=== PATIENT | female | born 1990 | race African-American/Black ===

== ENCOUNTER 2020-03-24 02:36 | Inpatient (IN) | payer OTHER ==
--- OUTSIDE RECORDS SUMMARY | 2020-03-24 02:38 | XMS REPORT | Summary of Care ---
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 ULTRA) 29 mg iron- 1 mg-200 mg CapIndications: Supervision of high risk in second trimester documented as of this encounter (statuses as of 2020) Active Problems Problem Noted Date Trichomonal vulvovaginitis 08/10/2019 Overview: Pending yeni in 4 weeks Vaginal bleeding in 08/03/2019 Multiparity 08/03/2019 Supervision of high-risk 08/03/2019 Obesity affecting 05/15/2016 Estimated Date of Delivery Comments Yes 03/22/2020 Based on last menstr ual period of 06/16/2019 (Exact Date) documented as of this encounter (statuses as of 2020) Resolved Problems Problem Noted Date Resolved Date Well woman exam with routine gynecological exam 05/15/2016 08/03/2019 Contraception management 05/15/2016 08/03/2019 Need for Tdap vaccination 05/15/2016 08/03/2019 documented as of this encounter (statuses as of 2020) Immunizations Name Administration Dates Next Due HPV 05/15/2009 documented as of this encounter Social History Tobacco Use Types Packs/Day Years Used Date Never Smoker Smokeless Tobacco: Never Used Alcohol Use Drinks/Week oz/Week Comments Not Currently 0 Standard drinks or equivalent 0.0 social Alcohol Habits Answer Date Recorded How often do you have a drink containing alcohol? Never 08/03/2019 How many drinks containing alcohol do you have on a typical Not asked day when you are drinking? How often do you have six or more drinks on one occasion? No t asked Estimated Date of Delivery Comments Yes 03/22/2020 Based on last menstr ual period of 06/16/2019 (Exact Date) Sex Assigned at Date Recorded Not on file Job Start Date Occupation Industry Not on file Not on file Not on file Travel History Travel Start Travel End No recent travel history available. COVID-19 Exposure Response Date Recorded In the last month, have you been in contact with No / Unsure 2020 10:26 AM CDT someone who was confirmed or suspected to have Coronavirus / COVID-19? 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 documented in this encounter Discharge Instructions InstructionsDrever, Rosaura Martini NP - 2020Diagnosis: Pilonidal abscess Remove packing in 2 days Use heat therapy via heating pad or sitz baths 2-3 times per day Continue and complete Augmentin May take Tylenol for pain Follow up with your OB on Wednesday already scheduled Return to ED for onset of fever or acute worsening of symptoms documented in this encounter Plan of Treatment Name Type Priority Associated Diagnoses Date/Ti me Incision and Drainage PROCEDURES Routine Abscess of right 9:24 AM buttock CDT Health Maintenance Due Date Last Done Comments DTaP,Tdap,and Td Vaccines 08/03/2020 Postpo se from (1 - Tdap) 2002 ([place]) Depression Screening 08/03/2020 08/03/2019 INFLUENZA VACCINE (#1) 2020 Postponed from 04/23/2020 (Refu sed) PAP SMEAR 08/03/2022 08/03/2019, 08/03/2019, 07/01/2009, Additional history exists PNEUMOCOCCAL 0-64 YEARS Aged Out No longe r eligible COMBINED SERIES based on patient 's age to complete this topic documented as of this encounter Procedures Procedure Name Priority Date/Time Associated Diagnosis Comme nts INCISION AND DRAINAGE Routine 2020 9:24 AM Abscess of r ight CDT buttock NOTICE OF PRIVACY Routine 2020 9:23 AM PRACTICES CDT documented in this encounter Results Not on filedocumented in this encounter Visit Diagnoses Diagnosis Third trimester - Primary Cellulitis of buttock Cellulitis and abscess of buttock Abscess of right buttock Cellulitis and abscess of buttock documented in this encounter Administered Medications Medication Order MAR Action Action Date Dose Rate Site acetaminophen (TYLENOL) tablet Given 2020 12:20 PM CDT 650 mg 650 mg 650 mg, Oral, ONCE, 1 dose, 03/16/20 at 1315, LEESA lidocaine-prilocaine (EMLA) 2.5-2.5 % Given 2020 10:36 AM CDT 5 g See Comment cream 5 g Topical, ONCE, 1 dose, 03/16/20 at 1145, LEESA documented in this encounter Insurance Payer Benefit Plan / Subscriber ID Effective Phone Address [facility] xxxxxxxxx 2019-Prese [address]OX Medic aid HEALTH CHOICE - [place] [id number] 1 MANAGED MEDICAID [place], [place] [phone] documented as of this encounter Advance Directives Type Date Recorded 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
--- OUTSIDE RECORDS SUMMARY | 2020-03-24 02:38 | XMS REPORT | Summary of Care ---
:1990 Author Organization [facility] - Health Address [address] [place] [address] Care Team Providers Name Role Phone Yovany Mancilla Primary Care Provider Encounter Details Date Type Department Care Team Description 2020 Orders Only [facility] Doctor Unassigned, No 301 [facility] Name [place] [id number] [address] [place] [phone] Allergies No Known Allergiesdocumented as of this [...] Travel End No recent travel history available. documented as of this encounter Last Filed Vital Signs Not on filedocumented in this encounter Plan of Treatment Health Maintenance Due Date Last Done Comments [...] Name Priority Date/Time Associated Diagnosis Comme nts CONSENT/REFUSAL FOR Routine 2020 9:23 AM CDT DIAGNOSIS AND TREATMENT documented in this encounter Results Not on filedocumented in this encounter Insurance Payer Benefit Plan / Subscriber ID Effective Phone Address T ype Group Dates [facility] MEDICAID OF xxxxxxxxx 2019-Pres [phone] Med icaid [place] ent [id number] [place] [address] [facility] xxxxxxxxx 2019-Prese 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
--- OUTSIDE RECORDS SUMMARY | 2020-03-24 02:38 | XMS REPORT | Continuity of Care Document ---
:[address] [facility] t Address [address] [place] [address] Care Team Providers Name Role Phone Fortino VILLARREAL, Mary Attending Clinician Doctor Unassigned, Name Attending Clinician Unavailable Christiana DEL REAL, Lianet Attending Clinician Akinsipe WHCNP, C Attending Clinician Mary Freitas MD Admitting Clinician Problems This patient has no known problems. Allergies, Adverse Reactions, Alerts This patient has no known allergies or adverse reactions. Medications This patient has no known medications. Procedures This patient has no known procedures. Encounters Start End Encounter Admission Attending Care Care Encounter Source Date/Time Date/Time Type Type Clinicians Facility Department ID 2020-03-22 2020-03-22 [facility] [id number] 17:04:00 18:22:00 Encounter Daphney Mcdonald [id number] [place] [id number] [place] [id number] 2020-03-22 2020-03-22 Orders Doctor MELLO [id number] 00:00:00 00:00:00 Only UnassignedNAYAN [id number] [place] [facility] [id number] 2020 2020 Emergency Christiana [facility] [id number] 09:36:39 12:26:00 Rosaura Mcdonald [id number] [place] [id number] [place] [id number] 2020 2020 Orders Doctor MELLO [id number] 00:00:00 00:00:00 Only Unassigned, NAYAN [id number] [place] [facility] [id number] 2019-10-12 2019-10-12 Orders Doctor MELLO [id number] 00:00:00 00:00:00 Only Unassigned, NAYAN [id number] [place] [id number] 2019-10-02 2019-10-02 Routine Akinsipe, [facility] [id number] 16:02:33 17:04:37 Sherri Pedroza WAX MOLDER [id number] Visit [facility] [id number] MATERNAL [id number] & CHILD [address] [place] [address] Results This patient has no known results.
--- OUTSIDE RECORDS SUMMARY | 2020-03-24 02:38 | XMS REPORT | Summary of Care ---
:1990 Author Organization [facility] - Health Address [address] [place] [address] Care Team Providers Name Role Phone Yovany Mancilla Primary Care Provider Encounter Details Date Type Department Care Team Description 03/22/2020 Orders Only [facility] Doctor Unassigned, No 301 [facility] Name [place] [id number] [place] [phone] Allergies No Known Allergiesdocumented as of this encounter (statuses as of 03/22/2020) Medications Medication Sig Dispensed Refills Start Date End Date Status PNV 67-iron ps-folate Take 1 Each by 30 capsule 6 10/02/2019 Active no.1-dha (VITAFOL mouth daily. ULTRA) 29 mg iron- 1 mg-200 mg CapIndications: Supervision of high risk in second trimester documented as of this encounter (statuses as of 03/22/2020) Active Problems Problem Noted Date Trichomonal vulvovaginitis 08/10/2019 Overview: Pending yeni in 4 weeks Vaginal bleeding in 08/03/2019 Multiparity 08/03/2019 Supervision of high-risk 08/03/2019 Obesity affecting 05/15/2016 Estimated Date of Delivery Comments Yes 03/22/2020 Based on last menstr ual period of 06/16/2019 (Exact Date) documented as of this encounter (statuses as of 03/22/2020) Resolved Problems Problem Noted Date Resolved Date Well woman exam with routine gynecological exam 05/15/2016 08/03/2019 Contraception management 05/15/2016 08/03/2019 Need for Tdap vaccination 05/15/2016 08/03/2019 documented as of this encounter (statuses as of 03/22/2020) Immunizations Name Administration Dates Next Due HPV [...] Associated Diagnosis Comme nts CONSENT/REFUSAL FOR Routine 03/22/2020 5:01 PM CDT DIAGNOSIS AND TREATMENT documented in this encounter Results Not on filedocumented in this encounter Insurance Payer Benefit Plan / Subscriber ID Effective Phone Address T ype Group Dates [facility] MEDICAID OF xxxxxxxxx 2019-Pres [phone] Med icaid [place] ent [id number] [place] [address] [facility] xxxxxxxxx 2019-Jacob [address] Medic aid HEALTH CHOICE HEALTH CHOICE [id number] - MANAGED MEDICAID [place], [place] [id number] documented as of this encounter Advance Directives Type Date Recorded Patient Directional Survey Drafter Explanati on Advance Directives and Living Will Power of Rewinder Operator
--- OUTSIDE RECORDS SUMMARY | 2020-03-24 02:39 | XMS REPORT | Summary of Care ---
:1990 Author Organization [facility] Address [address] [place] [address] Care Team Providers Name Role Phone Yovany Mancilla Primary Care Provider Reason for Visit Auth/Cert Status Reason Specialty Diagnoses / Procedures Referred By Yovany ontact Referred To Contact Obstetrics Diagnoses possible [facility] Labor And Delivery [address] [place], [place] [address] Phone: Fax: Encounter Details Date Type Department Care Team Description 03/22/2020 Hospital Encounter [facility] Labor and Delivery Daphney Freitas MD [address] [facility] DrKelsea [address] Dr antoine Albaro [address] [place] [address] [place], [place] [phone] Allergies No Known Allergiesdocumented as of this [...] Sign Reading Time Taken Comments Blood Pressure 139/86 03/22/2020 5:38 PM CDT Pulse 92 03/22/2020 5:38 PM CDT Temperature 36.8 C (98.3 F) 03/22/2020 5:38 PM CDT Respiratory Rate 20 03/22/2020 5:38 PM CDT Oxygen Saturation - - Inhaled Oxygen Concentration - - Weight 122.9 kg (271 lb) 03/22/2020 5:38 PM CDT Height 165.1 cm (5' 5") 03/22/2020 5:38 PM CDT Body Mass Index 45.1 03/22/2020 5:38 PM CDT documented in this encounter Discharge Instructions Patricia Hassan RN - 03/22/2020Preterm Labor (36 weeks and before): 1. Drink at least 10-12 glasses of water daily. 2. When resting or sleeping, stay off your back as much as possible. Use pillows for extra support. 3. Be sure to empty your bladder frequently at least every 2 hours. 4. No sexual intercourse or orgasm until checking with your doctor. 5. No tampons or douching until checking with your doctor. 6. Return to Labor and Delivery if you have any of the followin. Tightening of the uterus (contractions) 6 or more per hour. 2. Periodlike cramping. 3. Low back pain. 4. Pelvic pressure or aching thighs. 5. Abdominal cramping with or without diarrhea. 6. Vaginal spotting or bleeding with any of the above symptoms. 7. Leaking of fluid from your vagina. Term Labor (37+ weeks): Return to Labor and Delivery/ Center if: 1. Your contractions become more regular, at least every 5-6 minutes apart for one hour after walking and drinking a large glass of water. 2. Your bag of water starts leaking or you have a gush of water from your vagina. 3. If you are not sure if your water has broken: 1. Go to the bathroom and empty your bladder. 2. Put on a pad. If it is wet within hour, you may be leaking from your bag of water. You should come to the hospital to be checked right away. 3. Note the color and odor of the fluid. 4. Your babys movements have decreased or if your baby is not moving. 5. You have vaginal bleeding as heavy as a period. Decreased Movement: 1. Your baby should move at least 10 times in 2 hrs. 2. Keep a record of your babys movements on the Kick Count sheet provided 3. If you feel your baby is not moving as much as usual, do the followin. Drink a large glass of water. 2. Make sure you have eaten a meal recently. 3. Lie on your left side and count the babys movements. 4. If you do not have at least 10 movements in 2 hours, you should be seen as soon as possible in Labor and Delivery, or call your clinic, whichever is closer. 5. IF YOUR BABYS MOVEMENTS ARE MUCH SLOWER THAN NORMAL, OR ABSENT, AND YOU ARE WORRIED, DO NOT WAIT AN ENTIRE DAY. IT IS BETTER TO BE REASSURED THAN TO FIND A PROBLEM WITH YOUR BABY THAT COULD HAVE BEEN AVOIDED! Urinary Tract Infections: 1. Drink plenty of fluids, at least 10-12 glasses of water daily. 2. Have your prescription filled today. 3. Take all of the medication prescribed, even if you are feeling better. 4. Empty your bladder often at least every 2 hours. 5. Be sure to wipe from front to back after urinating. 6. Call your clinic if: 1. You have a fever of 100.4 F by mouth after taking your temperature twice, 4 hours apart. 2. You see blood in your urine. 3. You are unable to urinate. 4. You have severe pain when you urinate. 7. Avoid alcohol, soft drinks and drinks with caffeine such as teas and coffee during this treatment. Bleedin. It is normal to have some red, pink, or brown spotting after a vaginal exam. 2. [place], light red and brownish spotting is not unusual, especially later in the . 3. However, if heavy bleeding is present: a. Note the amount with the number of pads saturated. b. Note the color of the bleeding. c. Note any pain associated with the bleeding. d. Call Labor and Delivery or your clinic immediately. Fever: 1. Call your clinic if you have a fever of 100.4 F by mouth after taking your temperature twice, 4 hours apart. 2. Do not take any eyje-yoa-ylzkryb medications for an illness unless you have been instructed to doso by your physician or nurse. You should only take medicines on the list of safe medicines given to you at your clinic. Do not take more than the recommended doses. High Blood Pressure: Return to Labor and Delivery if you have: 1. Swelling in your face, puffiness around your eyes, more than slight swelling of your hands, or excessive or sudden swelling of your feet or ankles. 2. Sudden weight gain (more than 4 pounds in a week). 3. Throbbing headaches that wont go away, even after taking gtnl-whh-nytpxmp medicines as instructed by your care provider. 4. Changes in vision, including blurry vision, a sensation of flashing lights or spots, or temporaryloss of vision. 5. Severe pain or tenderness in your upper stomach area. This may include nausea and vomiting. documented in this encounter Plan of Treatment Health [...] encounter Procedures Procedure Name Priority Date/Time Associated Comments Diagnosis COVID-19 (ID NOW Routine 03/22/2020 5:37 PM Resu lts for this RAPID TESTING) CDT procedure are in the results section. ASSIGNMENT OF Routine 03/22/2020 5:05 PM BENEFITS CDT documented in this encounter Results COVID-19 (ID NOW RAPID TESTING) (03/22/2020 5:37 PM CDT) SARS-CoV-2 Rapid ID Not Detected Not Detected [facility] Specimen Swab - NASOPHARYNGEAL SWAB Narrative Performed At ID NOW COVID-19 Assay is an isothermal nucleic [facility] acid amplification test intended for the qualitative detection of nucleic acid from SARS-CoV-2 viral RNA in nasopharyngeal (CYLINDER PRESS OPERATOR HELPER) specimens. It is used under Emergency Use Authorization (EUA) by FDA. The limit of detection (LOD) of the assay is 125 Genome Equivalents/mL. A positive result is indicative of the presence of SARS-CoV-2 RNA. Clinical correlation with patient history and other diagnostic information is necessary to determine patient infection status. A negative (Not Detected) result does not preclude SARS-CoV-2 infection. In patients with clinical symptoms and other tests that are consistent with SARS-CoV-2 infection, negative results should be treated as presumptive negative and a new specimen should be tested with alternative PCR molecular test. Invalid: Please collect a new specimen for repeat patient testing if clinically indicated. Performing Organization Address City/State/Zipcode Phone Number [facility] CLIA: [id number], [address] [place], [place] [address] documented in this encounter Additional Health Concerns Infection Onset Date Last Indicated Resolved Time COVID-19 Rule Out 03/22/2020 03/22/2020 03/22/2020 6: 12 PM CDT documented as of this encounter Insurance Payer Benefit Plan / Subscriber ID Effective Phone Address T ype Group Dates [facility] xxxxxxxxx 2019-Prese [address] Medic aid HEALTH CHOICE - HEALTH CHOICE nt [id number] 1 MANAGED MEDICAID [place], [place] MED[place]ID [phone] documented as of this encounter Advance Directives Type Date Recorded Patient Freight Claim Investigator Explanati on Advance Directives and Living Will Power of Pediatric Oncologist
[2020-03-24] MEDS ORDERED: LIDOCAINE 1% 20 ML MDV IV ONE (02:45)
[2020-03-24] MEDS ORDERED: BUTORPHANOL 1 MG/ML INJ IV PRN (02:45)
[2020-03-24] MEDS ORDERED: PROMETHAZINE INJ 25 MG/ML AMP IM PRN (02:45)
[2020-03-24] MEDS ORDERED: Ringers Lactate 1,000 ML IV SCH ×2 (02:45→04:00)
[2020-03-24] MEDS ORDERED: Ringers Lactate 1,000 ML IV PRN ×2 (02:52→03:14)
[2020-03-24] MEDS ORDERED: METHYLERGONOVINE 0.2MG/ML AMP IM PRN ×2 (02:52→03:14)
[2020-03-24] MEDS ORDERED: CARBOPROST TROME 250 MCG/ML IM PRN (03:14)
[2020-03-24 03:22] LABS: Urine Appearance CLEAR; Urine Bilirubin NEGATIVE (NEG); Urine Blood 1+ (NEG); Urine Color YELLOW; Urine Glucose NEGATIVE (NEG); Urine Protein 1+ (NEG)
[2020-03-24] MEDS ORDERED: FENTANYL CITR 100 MCG/2 ML IV ONE (03:22)
--- NOTE | 2020-03-24 03:25 | P.OBGYNHP ---
Certification for Inpatient With expected LOS: <2 Midnights Patient will require the following post-hospital care: None Practitioner: I am a practitioner with admitting privileges, knowledge of patient current condition, hospital course, and medical plan of care. Services: Services provided to patient in accordance with Admission requirements found in Title 42 Section 412.3 of the Code of Federal Regulations Patient History Date of Service: 03/24/20 Primary Care Provider: Lydia Reason for admission: Normal labor History of Present Illness: 30 y/o @38+ weeks presents with regular contractions that began at 130am. Pt did have some LOF but not currently. Denies VB. +FM. Describes painful contractions every few minutes. Allergies No Known Allergies Allergy (Verified 03/24/20 02:50) Home medications list reviewed: Yes (pnv) - Past Medical/Surgical History Has patient received pneumonia vaccine in the past: Yes Diabetic: No Past Medical History: Patient denies medical history Review of Systems General: Unremarkable Eyes: Unremarkable ENT: Unremarkable Respiratory: Unremarkable Cardiovascular: Unremarkable Gastrointestinal: Abdominal Pain (REGULAR CONTRACTIONS) Genitourinary: Unremarkable Musculoskeletal: Unremarkable Integumentary: Unremarkable Neurological: Unremarkable Lymphatics: Unremarkable Physical Examination - Vital Signs Temperature: 97.9 F Blood Pressure: 139/94 Pulse: 64 Respirations: 16 - General General: Alert, Oriented x3, Obese, Moderate distress HEENT: Atraumatic, Normocephalic Neck: Supple Respiratory: Clear to auscultation bilaterally, Normal air movement Cardiovascular: No edema, Normal S1 S2 Gastrointestinal: Soft and benign (GRAVID), No tenderness Musculoskeletal: No clubbing, No swelling Integumentary: No rashes Neurological: Normal speech - Female Pelvic External genitalia: Normal Vagina: Normal, Discharge Cervix: Dilation (6), Effacement (80), station (-1) Uterus: Non-tender, Gravid Adnexa: Unable to evaluate - Obstetrics heart rate tracing: Category 1 Contractions: Frequency (q2-3 minutes) Amniotic membrane: Intact Assessment and Plan - Problems (Diagnosis) (1) Elevated blood pressure affecting in third trimester, antepartum Onset Date: ~03/24/20 Current Visit: Yes Status: Acute Plan: PIH labs added: CMP, uric acid, urine protein/creatinine ratio Will monitor Blood pressure closely Treat severe range Bps. Pt asymptomatic. - Plan Admit IV fentanyl prn for pain Epidural if desired Reassuring status Proven pelvis for 3000 grams Discharge Plan: Home - Advance Directives Does patient have a Living Will: No Does patient have a Durable POA for Healthcare: No - Code Status/Comfort Care Code Status Assessed: Yes Code Status: Full Code Physician Review: Patient Assessed, Agree with Above Assessment and Plan Time Spent Managing Pts Care (In Minutes): 45
[2020-03-24 03:33] LABS: Urine Microscopic Reflex ORDER UMIC
[2020-03-24 03:53] LABS: Absolute Lymphocytes (CBC) 2.3 K/uL (0.7-4.9); Basophils % 0.4 % (0-1.3); Hematocrit 33.5 % (36.0-45.0); Lymphocytes % 30.6 % (15.3-44.8); MPV 9.3 fL (7.6-11.3); RBC Red Blood Cell Count 4.24 M/uL (3.86-4.86)
[2020-03-24 04:13] LABS: Urine Bacteria 20-50 /HPF (<20); Urine Culture Reflex Order REFLEXED; Urine Mucus 1+ /HPF (NONE SEEN)
[2020-03-24] MEDS ORDERED: LIDOCAINE 1% MPF 30 ML VIAL ONE (04:16)
[2020-03-24] MEDS ORDERED: OXYTOCIN/LR 20 UNIT/1,000 ML BAG IV ONE (04:16)
[2020-03-24 04:19] LABS: ALT/SGPT 21 U/L (12-78); AST/SGOT 14 U/L (15-37); Albumin 2.3 g/dL (3.4-5.0); Alkaline Phosphatase 126 U/L (45-117); BUN Blood Urea Nitrogen 7 mg/dL (7-18); Bicarbonate 23 mmol/L (21-32); Bilirubin Total 0.2 mg/dL (0.2-1.0); Glucose Level 81 mg/dL (74-106); Potassium 3.9 mmol/L (3.5-5.1); Sodium Level 137 mmol/L (136-145); Uric Acid 3.1 mg/dL (2.6-6.0)
[2020-03-24] MEDS ORDERED: ONDANSETRON 4 MG/2 ML VIAL IV PRN (04:24)
[2020-03-24] MEDS ORDERED: Tdap (Diph,Pertuss(Acell),Tet Vac) 0.5 ML SYR IMVAC ONE (04:24)
[2020-03-24] MEDS ORDERED: ACETAMINOPHEN 500 MG TAB PO PRN (04:24)
--- NOTE | 2020-03-24 04:38 | P.BOP ---
Preoperative diagnosis: 30 @38+ weeks in active labor Postoperative diagnosis: s/p Primary procedure: vaginal delivery Secondary procedure: repair of second degree tear Senior Administrative Support: n/a (Pt progressed to Fd/100/+2. WIth maternal forces pt delivered head over an intact perineum. SHoulders were delivered with ease. No nuchal cord noted. Mouth suctions. Baby to mom's chest. Delayed cord clamping by 1 min. PLacenta delivered intact. 20 ml of lidociane with epi injected. 2nd degree midline vaginal tear repaired with 2-0 vicryl. Vaginal sweep performed with normal lochia. Mom and baby doing well.) Estimated blood loss: 110 Specimen: none Findings: Full term male, Apgars 8,9. Weight 6# 12.3 oz Anesthesia: Local Complications: None Condition: Good
[2020-03-24 05:02] VITALS: BMI 44.9
[2020-03-24] MEDS: IBUPROFEN 200 MG TAB PO PRN ×2 (05:50→17:35)
[2020-03-24 05:51] LABS: Urine Protein/Creatinine Ratio 0.5 ratio (<0.15)
[2020-03-24] MEDS ORDERED: Magnesium Sulfate 2gm IVPB 2 G/50 ML BAG IV ONE ×2 (06:32→08:00)
--- NOTE | 2020-03-24 06:40 | P.PN ---
Date of Service: 03/24/20 Pt describes mild cramping. Lochia moderate. Breast feeding. Denies [place]. VS: BPs 130-150s/70-90s AF Labs- Normal LFTS, PLTS, elevated urine Pro/Cret ratio DIscussed with pt rising blood pressures and abnrmal urine protein/creatine ratio consistent with preeclampsia. Will start Magesium Sulfate 6 gram load and then 2 grams/hour for 24 hour course. Continue to monitor blood pressures closely. Treat blood pressures over 160/105. Plan of care reviewed with pt and verbal understanding expressed. Nursing informed of plan of care. MCS
[2020-03-24] MEDS ORDERED: MAGNESIUM SULF/STERILE WATER 1,000 ML IV ONE (07:35)
[2020-03-24] MEDS ORDERED: NA CHLORIDE 0.9% IV ONE (08:00)
[2020-03-24] MEDS ORDERED: MAGNESIUM IV ONE (08:00)
[2020-03-24] MEDS: PHENOBARBITAL 32.4 MG TABLET PO SCH ×2 (12:20→20:00)
[2020-03-24] MEDS ORDERED: Ringers Lactate 2,000 ML IV ONE (23:59)
[2020-03-25 00:26] LABS: RPR (Rapid Plasma Reagin) NON-REACT (NON-REACT)
[2020-03-25] MEDS: PHENOBARBITAL 32.4 MG TABLET PO SCH (04:00)
[2020-03-25 07:58] VITALS: BP 129/65; TEMP 98
[2020-03-25] MEDS: IBUPROFEN 200 MG TAB PO PRN (08:02)
[2020-03-25] MEDS ORDERED: Tdap (Diph,Pertuss(Acell),Tet Vac) 0.5 ML SYR IMVAC ONE (08:18)
--- NOTE | 2020-03-26 03:10 | DS ---
Date of Discharge: 03/25/2020 Hospital Course: A -nbou-oey female, multiparous, scheduled for induction on Wednesday this week, came in labor. Delivered by Dr. Juarez over the weekend. Uneventful delivery, second-degree la ceration repaired with 2-0 Vicryl. Estimated blood loss not noted, but nurses said it was normal. P ostpartum, the patient had elevated blood pressures. Was started on magnesium sulfate. Subsequently that was discontinued. She was put on phenobarbital. Blood pressure has been absolutely normal sin ce then. Reflexes normal. No edema. Everything has been discontinued at this point. The patient h as no complaints or problems. She is Rh positive, immune to rubella. Tdap has been offered. The anneliese raymond will be dismissed after evaluation by [employer], to return to my office in 6 weeks for follo wup, to report any temperature elevation of 100 degrees or greater, severe pain, heavy bleeding, or a ny other type of abnormality. Final Diagnosis: Term intrauterine , vaginal delivery. SARA/MICHAEL Voice ID: [id number] Report ID: [id number]
[2020-03-27 04:57] LABS: HBsAG Nonreactive (Nonreactive)
== END 2020-03-25 09:15 | disposition home or self-care (01) | DRG 807 ==
LOC: L&D 02:36 → 2ND-WC 02:52
PROVIDERS: ADMIT Obstetrics & Gynecology; ATTEND Specialist
PROC: 10E0XZZ Delivery of Products of Conception, External Approach (ICD-10-PCS; principal; 2020-03-24)
PROC: 0KQM0ZZ Repair Perineum Muscle, Open Approach (ICD-10-PCS; 2020-03-24)
PROC: 10907ZC Drainage of Amniotic Fluid, Therapeutic from Products of Conception, Via Natural or Artificial Opening (ICD-10-PCS; 2020-03-24)
PROC: 4A1H7CZ Monitoring of Products of Conception, Cardiac Rate, Via Natural or Artificial Opening (ICD-10-PCS; 2020-03-24)
PROC: 10H073Z Insertion of Monitoring Electrode into Products of Conception, Via Natural or Artificial Opening (ICD-10-PCS; 2020-03-24)
DX: O70.1 Second degree perineal laceration during delivery (principal); Z37.0 Single live birth; O16.4 Unspecified maternal hypertension, complicating childbirth; Z3A.38 38 weeks gestation of pregnancy; Z23 Encounter for immunization
CPT/HCPCS: 36415; 80053; 80074; 81003; 81015; 82570; 83735; 84156; 84550; 85025; 86592; 86850; 86900; 86901; 87086; 87088; 90471; 90715; J2210; J2590; J3010; J3475; J7050; J7120